=== PATIENT | female | born 1985 | race African-American/Black ===

== ENCOUNTER 2016-07-19 18:58 | Inpatient (IN) | payer OTHER ==
[~2016-07-19] VITALS: Ht 160 cm; Wt 127.5 kg
[2016-07-19 19:54] LABS: HEMATOCRIT. 41.2 % (36.0-48.0); HEMOGLOBIN. 13.4 g/dL (12.0-16.0); MEAN CORPUSCULAR HEMOGLOBIN 28.2 pg (28.0-32.0); MEAN CORPUSCULAR HGB CONC 32.6 g/dL (31.0-37.0); MEAN CORPUSCULAR VOLUME 86.4 fL (81.0-99.0); MEAN PLATELET VOLUME 8.7 fl (7.4-10.4); PLATELET 266 x1000/uL (130-400); RED BLOOD CELL COUNT 4.76 mill/uL (4.2-5.4); RED CELL DISTRIBUTION WIDTH 14.4 % (11.6-14.6); WHITE BLOOD COUNT 19.6 x1000/uL (4.5-11.0)
[2016-07-19 19:56] LABS: CHLORIDE 89 mEq/L (98-107); DIFFERENTIAL COMMENT 1; INDEX HEMOLYSI 1 (1-3); INDEX ICTERIC 1 (1-4); INDEX LIPEMIC 1 (1-3)
[2016-07-19 19:59] LABS: ALBUMIN 3.2 g/dL (3.4-5.0); ANION GAP 19; CALCIUM 9.9 mg/dL (8.5-10.1); CARBON DIOXIDE 22 mEq/L (21-32); UREA NITROGEN BLOOD 5 mg/dL (7-21)
[2016-07-19] MEDS ORDERED: ACETAMINOPHEN 325MG TABLET PO STA (19:59)
[2016-07-19] MEDS ORDERED: SODIUM CHLORIDE 0.9% 1,000 ML IV ONE (19:59)
[2016-07-19 20:02] LABS: HCG SCREEN NEGATIVE
[2016-07-19 20:04] LABS: ACETAMINOPHEN < 2 ug/mL (10-30); ALANINE AMINOTRANSFERASE 130 IU/L (13-61); ETHANOL BLOOD < 10 mg/dL; eGFR > 60 mL/min (>60)
[2016-07-19] MEDS ORDERED: KETOROLAC 30MG/ML VIAL IV STA (20:09)
[2016-07-19] MEDS ORDERED: PIPERACILLIN SODIUM/TAZOBACTAM 4.5 G in DEXT 5% WATER 100 ML IV ONE (20:15)
[2016-07-19] MEDS ORDERED: VANCOMYCIN 1 G PREMIX 200 ML IV ONE (20:15)
[2016-07-19] MEDS ORDERED: SODIUM CHLORIDE 0.9% 1000ML BAG (SEPSIS BOLUS) IV ONE (20:15)
[2016-07-19] MEDS ORDERED: POTASSIUM CHLORIDE INJ 30 MEQ in DEXT 5%/0.9% NACL 1,000 ML IV ONE (20:30)
[2016-07-19] MEDS ORDERED: INSULIN REGULAR (DRIP) 100 UNITS in SODIUM CHLORIDE 0.9% 100 ML IV ONE (20:30)
[2016-07-19 20:35] LABS: PLATELET ESTIMATE NORMAL
[2016-07-19 21:00] LABS: INR 1.1; PROTHROMBIN TIME 11.4 sec
[2016-07-19 21:07] LABS: LACTIC ACID 3.5 mmol/L (0.4-2.0)
[2016-07-19 21:18] LABS: CLARITY URINE CLEAR (CLEAR); COLOR URINE YELLOW (YELLOW); GLUCOSE URINE 3+ (NEGATIVE); KETONES URINE NEGATIVE (NEGATIVE); LEUKOCYTE ESTERASE URINE NEGATIVE (NEGATIVE); NITRITE URINE NEGATIVE (NEGATIVE); OCCULT BLOOD URINE 2+ (NEGATIVE); PH URINE 6.5 (4.5-8.0); PROTEIN URINE NEGATIVE (NEGATIVE); UROBILINOGEN URINE 0.2 E.U./dL (0.2-1.0)
[2016-07-19 21:30] LABS: *AMPHETAMINES SCREEN URINE NEGATIVE (NEGATIVE); *BARBITURATES SCREEN URINE NEGATIVE (NEGATIVE); *BENZODIAZEPINES SCREEN URINE NEGATIVE (NEGATIVE); *COCAINE SCREEN URINE NEGATIVE (NEGATIVE); CANNABINOID URINE SCREEN NEGATIVE (NEGATIVE); ECSTASY MDMA SCREEN URINE NEGATIVE (NEGATIVE); METHADONE URINE SCREEN NEGATIVE (NEGATIVE); OPIATES URINE SCREEN NEGATIVE (NEGATIVE); PHENCYCLIDINE URINE SCREEN NEGATIVE (NEGATIVE)
[2016-07-19 21:39] LABS: BACTERIA URINE TRACE; RBC URINE 0-2 /hpf (0-2); SQUAMOUS EPITHELIAL CELL URINE FEW /lpf (RARE/1+); WBC URINE 0-2 /hpf (0-2)
[2016-07-19] MEDS: INSULIN REGULAR (DRIP) 100 UNITS in SODIUM CHLORIDE 0.9% 100 ML IV NR (22:39)
[2016-07-19] MEDS ORDERED: SODIUM CHLORIDE 0.45% 1,000 ML IV SCH (23:37)
[2016-07-19] MEDS ORDERED: NA PHOS,M-B/NA PHOS,DI-BA ENEMA 118ML PR PRN (23:45)
[2016-07-19] MEDS ORDERED: DEXTROSE 50% WATER 50ML SYRINGE IV PRN (23:45)
[2016-07-19] MEDS ORDERED: MAGNESIUM/ALUMINUM HYDROXIDE/SIMETHICONE 30ML UDC PO PRN (23:45)
[2016-07-19] MEDS ORDERED: CLONIDINE 0.1MG TABLET PO PRN (23:45)
[2016-07-19] MEDS ORDERED: IPRATROPIUM/ALBUTEROL 0.5-3(2.5)MG/3ML NEB INH PRN (23:45)
[2016-07-19] MEDS ORDERED: ACETAMINOPHEN 650MG SUPP PR PRN (23:45)
[2016-07-19] MEDS ORDERED: DIPHENHYDRAMINE 50MG/ML VIAL IV PRN (23:45)
[2016-07-19] MEDS ORDERED: ONDANSETRON HCL 4MG/2ML VIAL IV PRN (23:45)
[2016-07-19] MEDS ORDERED: DOCUSATE SODIUM 100MG CAPSULE PO PRN (23:45)
[2016-07-19] MEDS ORDERED: GUAIFENESIN 200MG/10ML SUGAR FREE UDC PO PRN (23:45)
[2016-07-20] VITALS (91 sets, daily range): BP systolic 79–140; BP diastolic 43–90
[2016-07-20 00:06] LABS: DIFFERENTIAL COMMENT 1; HEMATOCRIT. 38.5 % (36.0-48.0); HEMOGLOBIN. 12.9 g/dL (12.0-16.0); MEAN CORPUSCULAR HEMOGLOBIN 28.2 pg (28.0-32.0); MEAN CORPUSCULAR HGB CONC 33.6 g/dL (31.0-37.0); MEAN CORPUSCULAR VOLUME 84.1 fL (81.0-99.0); MEAN PLATELET VOLUME 8.5 fl (7.4-10.4); PLATELET 246 x1000/uL (130-400); RED BLOOD CELL COUNT 4.57 mill/uL (4.2-5.4); RED CELL DISTRIBUTION WIDTH 14.3 % (11.6-14.6); WHITE BLOOD COUNT 15.3 x1000/uL (4.5-11.0)
[2016-07-20 00:15] LABS: CHLORIDE 99 mEq/L (98-107); INDEX HEMOLYSI 1 (1-3); INDEX ICTERIC 1 (1-4); INDEX LIPEMIC 1 (1-3)
[2016-07-20 00:20] LABS: BG BASE EXCESS -6.6 mmol/L (-2.0-2.0); BG CARBOXYHEMOGLOBIN 0.7 % (0.5-1.5); BG DEOXYHEMOGLOBIN 2.6 % (0.0-5.0); BG FRACTION INSPIRED OXYGEN 21; BG HCO3 ACT 15.7 mmol/L (22.0-26.0); BG METHEMOGLOBIN 0.3 % (0.0-1.5); BG OXYGEN SATURATION 97.4 % (92.0-98.5); BG OXYHEMOGLOBIN 96.4 % (94.0-97.0); BG PCO2 23.6 mmHg (35.0-45.0); BG PO2 98.5 mmHg (75.0-100.0); BG SAMPLE SITE RIGHT RADIAL; BG TOTAL HEMOGLOBIN 12.8 g/dL (12.0-18.0); BG VENT MODE ROOM AIR
[2016-07-20 00:22] LABS: ANION GAP 17; CALCIUM 9.5 mg/dL (8.5-10.1); CARBON DIOXIDE 22 mEq/L (21-32); UREA NITROGEN BLOOD 5 mg/dL (7-21); eGFR > 60 mL/min (>60)
[2016-07-20 00:29] LABS: ALBUMIN 2.6 g/dL (3.4-5.0); BILIRUBIN DIRECT 0.3 mg/dL (0.0-0.2)
[2016-07-20 00:31] LABS: AMMONIA 44 uMol/L (<32)
[2016-07-20 02:18] LABS: PLATELET ESTIMATE NORMAL
[2016-07-20] MEDS ORDERED: LEVOFLOXACIN 500MG PREMIX 100 ML IV SCH ×2 (03:00→09:00)
[2016-07-20] MEDS ORDERED: POTASSIUM CHLORIDE INJ 30 MEQ in DEXT 5%/0.9% NACL 1,000 ML IV NR (03:00)
[2016-07-20] MEDS ORDERED: POTASSIUM CHLORIDE INJ 30 MEQ in DEXT 5%/0.9% NACL 1,000 ML IV SCH (03:00)
[2016-07-20] MEDS: INSULIN REGULAR (DRIP) 100 UNITS in SODIUM CHLORIDE 0.9% 100 ML IV NR (03:35)
[2016-07-20] MEDS ORDERED: POTASSIUM CHLORIDE INJ 40 MEQ in DEXT 5% WATER 250 ML IV NR (04:00)
[2016-07-20] MEDS ORDERED: NACL IV SCH (04:00)
[2016-07-20] MEDS ORDERED: POTASSIUM CHLORIDE IV SCH (04:00)
[2016-07-20] MEDS ORDERED: SODIUM BICARBONATE IV SCH (04:00)
[2016-07-20] MEDS ORDERED: DEXT IV SCH (04:00)
[2016-07-20 04:16] LABS: HEMATOCRIT. 34.7 % (36.0-48.0); HEMOGLOBIN. 11.8 g/dL (12.0-16.0); MEAN CORPUSCULAR HEMOGLOBIN 28.4 pg (28.0-32.0); MEAN CORPUSCULAR HGB CONC 34.1 g/dL (31.0-37.0); MEAN CORPUSCULAR VOLUME 83.3 fL (81.0-99.0); MEAN PLATELET VOLUME 8.4 fl (7.4-10.4); PLATELET 243 x1000/uL (130-400); RED BLOOD CELL COUNT 4.17 mill/uL (4.2-5.4); RED CELL DISTRIBUTION WIDTH 14.3 % (11.6-14.6); WHITE BLOOD COUNT 20.3 x1000/uL (4.5-11.0)
[2016-07-20] MEDS: NOREPINEPHRINE 4 MG in DEXT 5% WATER 246 ML IV PRN ×2 (04:17→08:55)
[2016-07-20 04:25] LABS: DIFFERENTIAL COMMENT 1
[2016-07-20 04:31] LABS: ALANINE AMINOTRANSFERASE 86 IU/L (13-61); ALBUMIN 2.2 g/dL (3.4-5.0); ANION GAP 13; CALCIUM 8.6 mg/dL (8.5-10.1); CARBON DIOXIDE 25 mEq/L (21-32); CHLORIDE 107 mEq/L (98-107); HDL CHOLESTEROL 37 mg/dL (40-59); INDEX HEMOLYSI 1 (1-3); INDEX ICTERIC 1 (1-4); INDEX LIPEMIC 1 (1-3); LDL CHOLESTEROL 36 mg/dL (5-100); TRIGLYCERIDE 101 mg/dL (0-150); TROPONIN I < 0.02 ng/mL (0.00-0.04); UREA NITROGEN BLOOD 5 mg/dL (7-21); eGFR > 60 mL/min (>60)
[2016-07-20] MEDS: VANCOMYCIN 750 MG PREMIX 150 ML IV SCH ×3 (04:38→20:08)
[2016-07-20 04:41] LABS: CREATINE KINASE 982 IU/L (26-192)
[2016-07-20] MEDS: METRONIDAZOLE 500 MG PREMIX 100 ML IV SCH ×2 (05:46→14:39)
[2016-07-20] MEDS: SODIUM CHLORIDE 0.9% INJ 3ML FLUSH IVF SCH ×3 (05:47→21:29)
[2016-07-20] MEDS: ACETAMINOPHEN 650MG/20.3ML UDC GT PRN ×4 (05:47→19:49)
[2016-07-20] MEDS: BLOOD SUGAR DIAGNOSTIC STRIP TEST SCH ×9 (05:47→20:47)
[2016-07-20] MEDS ORDERED: INSULIN REGULAR (DRIP) 100 UNITS in SODIUM CHLORIDE 0.9% 99 ML IV PRN (06:30)
[2016-07-20] MEDS ORDERED: INSULIN LISPRO 100 UNITS/ML SUBCUT SCH ×3 (07:00→16:30)
[2016-07-20 07:13] LABS: PLATELET ESTIMATE NORMAL
[2016-07-20] MEDS ORDERED: INSULIN REGULAR (DRIP) 100 UNITS in SODIUM CHLORIDE 0.9% 100 ML IV SCH (07:24)
[2016-07-20] MEDS ORDERED: DEXTROSE 50% WATER 50ML SYRINGE IV PRN ×3 (07:30→09:15)
[2016-07-20 07:56] LABS: BG CARBOXYHEMOGLOBIN 0.6 % (0.5-1.5); BG DEOXYHEMOGLOBIN 1.8 % (0.0-5.0); BG FRACTION INSPIRED OXYGEN 21; BG HCO3 ACT 21.6 mmol/L (22.0-26.0); BG METHEMOGLOBIN 0.2 % (0.0-1.5); BG OXYGEN SATURATION 98.2 % (92.0-98.5); BG OXYHEMOGLOBIN 97.4 % (94.0-97.0); BG PH 7.476 (7.350-7.450); BG PO2 108.3 mmHg (75.0-100.0); BG SAMPLE SITE LEFT RADIAL; BG TOTAL HEMOGLOBIN 12.5 g/dL (12.0-18.0); BG VENT MODE ROOM AIR
[2016-07-20] MEDS: IPRATROPIUM/ALBUTEROL 0.5-3(2.5)MG/3ML NEB INH SCH ×3 (08:32→21:37)
[2016-07-20 08:58] LABS: ANION GAP 14; CALCIUM 8.8 mg/dL (8.5-10.1); CARBON DIOXIDE 23 mEq/L (21-32); CHLORIDE 107 mEq/L (98-107); INDEX HEMOLYSI 1 (1-3); INDEX ICTERIC 1 (1-4); INDEX LIPEMIC 1 (1-3); UREA NITROGEN BLOOD 8 mg/dL (7-21); eGFR > 60 mL/min (>60)
[2016-07-20] MEDS ORDERED: POTASSIUM CHLORIDE 20MEQ TABLET SR PO SCH (09:15)
[2016-07-20] MEDS ORDERED: INSULIN DETEMIR UD 100 UNITS/ML SYR SUBCUT SCH ×2 (10:00→22:00)
[2016-07-20 11:51] LABS: MAGNESIUM 1.9 mg/dL (1.8-2.4); PHOSPHORUS 2.3 mg/dL (2.5-4.9)
[2016-07-20 12:21] LABS: T4 FREE 1.75 ng/dL (0.76-1.46); THYROID STIMULATING HORMONE 1.2 uIU/mL (0.36-3.74)
[2016-07-20] MEDS: NOREPINEPHRINE 8 MG in DEXT 5% WATER 242 ML IV PRN (12:28)
[2016-07-20] MEDS ORDERED: POTASSIUM PHOS,M-BASIC-D-BASIC 20 MMOL in DEXT 5% WATER 243.3333 ML IV NR (15:00)
[2016-07-20] MEDS: ARIPIPRAZOLE 15MG TABLET PO SCH (16:43)
[2016-07-20] MEDS: INSULIN LISPRO (LOW DOSE) 100 UNITS/ML SUBCUT SCH ×2 (17:13→20:26)
[2016-07-20] MEDS: INSULIN LISPRO 100 UNITS/ML SUBCUT SCH (17:13)
[2016-07-20] MEDS: POTASSIUM CHLORIDE INJ 10 MEQ in SODIUM CHLORIDE 0.9% 1,000 ML IV SCH (17:58)
[2016-07-20] MEDS: DIVALPROEX SODIUM 250MG DR TABLET PO SCH (20:08)
[2016-07-20 21:52] LABS: CHLORIDE 103 mEq/L (98-107)
[2016-07-20 21:54] LABS: INDEX HEMOLYSI 1 (1-3); INDEX ICTERIC 1 (1-4); INDEX LIPEMIC 1 (1-3)
[2016-07-20 22:03] LABS: ANION GAP 15; CALCIUM 8.7 mg/dL (8.5-10.1); CARBON DIOXIDE 24 mEq/L (21-32); CREATINE KINASE 288 IU/L (26-192); TROPONIN I < 0.02 ng/mL (0.00-0.04); UREA NITROGEN BLOOD 9 mg/dL (7-21); eGFR > 60 mL/min (>60)
[2016-07-20] MEDS ORDERED: METRONIDAZOLE 500 MG PREMIX 100 ML IV SCH (23:00)
[2016-07-21] VITALS (91 sets, daily range): BP systolic 74–159; BP diastolic 22–108
[2016-07-21] MEDS: NOREPINEPHRINE 8 MG in DEXT 5% WATER 242 ML IV PRN (01:24)
[2016-07-21] MEDS: ACETAMINOPHEN 650MG/20.3ML UDC GT PRN ×2 (02:09→08:20)
[2016-07-21] MEDS: IPRATROPIUM/ALBUTEROL 0.5-3(2.5)MG/3ML NEB INH SCH ×4 (02:19→19:35)
[2016-07-21] MEDS: LEVOFLOXACIN 500MG PREMIX 100 ML IV SCH (03:43)
[2016-07-21] MEDS: VANCOMYCIN 750 MG PREMIX 150 ML IV SCH (04:52)
[2016-07-21 05:11] LABS: BASOPHILS % 0.2 % (0.0-2.0); EOSINOPHILS % 2.4 % (0.0-5.0); HEMATOCRIT. 31.2 % (36.0-48.0); HEMOGLOBIN. 10.4 g/dL (12.0-16.0); LYMPHOCYTES % 9.2 % (20.0-50.0); MEAN CORPUSCULAR HEMOGLOBIN 28.3 pg (28.0-32.0); MEAN CORPUSCULAR HGB CONC 33.4 g/dL (31.0-37.0); MEAN CORPUSCULAR VOLUME 84.7 fL (81.0-99.0); MEAN PLATELET VOLUME 8.9 fl (7.4-10.4); MONOCYTES % 3.1 % (2.0-8.0); NEUTROPHILS % 85.1 % (40.0-76.0); PLATELET 211 x1000/uL (130-400); RED BLOOD CELL COUNT 3.68 mill/uL (4.2-5.4); RED CELL DISTRIBUTION WIDTH 14.7 % (11.6-14.6); WHITE BLOOD COUNT 19.3 x1000/uL (4.5-11.0)
[2016-07-21 05:33] LABS: ALANINE AMINOTRANSFERASE 77 IU/L (13-61); ALBUMIN 1.9 g/dL (3.4-5.0); ANION GAP 11; CALCIUM 8.3 mg/dL (8.5-10.1); CARBON DIOXIDE 25 mEq/L (21-32); CHLORIDE 105 mEq/L (98-107); CREATINE KINASE 161 IU/L (26-192); INDEX HEMOLYSI 1 (1-3); INDEX ICTERIC 1 (1-4); INDEX LIPEMIC 1 (1-3); MAGNESIUM 1.7 mg/dL (1.8-2.4); UREA NITROGEN BLOOD 6 mg/dL (7-21); VANCOMYCIN TROUGH 4.5 ug/mL (5.0-10.0); eGFR > 60 mL/min (>60)
[2016-07-21] MEDS: SODIUM CHLORIDE 0.9% INJ 3ML FLUSH IVF SCH ×3 (05:43→21:52)
[2016-07-21] MEDS: BLOOD SUGAR DIAGNOSTIC STRIP TEST SCH ×4 (05:49→21:57)
[2016-07-21] MEDS: METRONIDAZOLE 500 MG PREMIX 100 ML IV SCH ×3 (06:15→22:50)
[2016-07-21] MEDS: INSULIN LISPRO (LOW DOSE) 100 UNITS/ML SUBCUT SCH (06:34)
[2016-07-21] MEDS: INSULIN LISPRO 100 UNITS/ML SUBCUT SCH ×7 (06:34→22:00)
[2016-07-21 07:57] LABS: HEPATITIS B SURFACE ANTIGEN NEGATIVE
[2016-07-21] MEDS: ARIPIPRAZOLE 15MG TABLET PO SCH (08:19)
[2016-07-21] MEDS: DIVALPROEX SODIUM 250MG DR TABLET PO SCH ×2 (08:19→21:52)
[2016-07-21 08:24] LABS: HEPATITIS C VIR.AB < 0.02 INDEXVAL (0.00-0.80)
[2016-07-21 08:25] LABS: HEPATITIS B CORE AB IGM NEGATIVE
[2016-07-21 08:26] LABS: HEPATITIS A AB IGM NEGATIVE (NEGATIVE)
[2016-07-21] MEDS ORDERED: POTASSIUM PHOS,M-BASIC-D-BASIC 30 MMOL in SODIUM CHLORIDE 0.9% 500 ML IV SCH (09:00)
[2016-07-21] MEDS: HYDROCODONE/ACETAMINOPHEN 10/325MG TABLET PO PRN ×3 (10:42→23:48)
[2016-07-21] MEDS ORDERED: DEXTROSE 50% WATER 50ML SYRINGE IV PRN (11:30)
[2016-07-21] MEDS: VANCOMYCIN 1500MG in DEXTROSE 5% WATER 250ML IV SCH ×3 (11:45→18:41)
[2016-07-21] MEDS: MAGNESIUM 2 G PREMIX 50 ML IV SCH ×2 (13:16→13:23)
[2016-07-21] MEDS: ZINC OXIDE 20% OINT 30GM TOP SCH ×2 (14:00→22:00)
[2016-07-21] MEDS ORDERED: ARIP30TA3 PO (16:18)
[2016-07-21] MEDS ORDERED: DIVA500T51 PO (16:21)
[2016-07-21] MEDS ORDERED: GLIP5TAB12 PO (16:33)
[2016-07-21] MEDS ORDERED: METF850T2 PO (16:41)
[2016-07-21] MEDS ORDERED: LITHTAB PO ×2 (16:46→16:50)
[2016-07-21] MEDS ORDERED: ZINC OXIDE 20% OINT 30GM TOP SCH (17:00)
[2016-07-21] MEDS: LINAGLIPTIN 5MG TABLET PO SCH (18:41)
[2016-07-21 19:00] LABS: BASOPHILS % 0.4 % (0.0-2.0); DIFFERENTIAL COMMENT 0; EOSINOPHILS % 2.8 % (0.0-5.0); HEMATOCRIT. 30.7 % (36.0-48.0); LYMPHOCYTES % 13.6 % (20.0-50.0); MEAN CORPUSCULAR HEMOGLOBIN 27.8 pg (28.0-32.0); MEAN CORPUSCULAR HGB CONC 32.7 g/dL (31.0-37.0); MEAN CORPUSCULAR VOLUME 85.1 fL (81.0-99.0); MEAN PLATELET VOLUME 8.9 fl (7.4-10.4); MONOCYTES % 3.1 % (2.0-8.0); NEUTROPHILS % 80.1 % (40.0-76.0); PLATELET 211 x1000/uL (130-400); RED CELL DISTRIBUTION WIDTH 14.5 % (11.6-14.6); WHITE BLOOD COUNT 15.1 x1000/uL (4.5-11.0)
[2016-07-21] MEDS: MICONAZOLE NITRATE 2% OINT 71GM TOP SCH (22:01)
[2016-07-21] MEDS: MUPIROCIN 2% OINT 22GM TOP SCH (22:01)
[2016-07-21] MEDS: INSULIN DETEMIR UD 100 UNITS/ML SYR SUBCUT SCH (22:02)
[2016-07-21] MEDS: NICOTINE 21MG PATCH TD SCH (22:51)
[2016-07-22] VITALS (28 sets, daily range): BP systolic 98–135; BP diastolic 48–89
[2016-07-22] MEDS: VANCOMYCIN 1500MG in DEXTROSE 5% WATER 250ML IV SCH ×2 (01:00→06:51)
[2016-07-22] MEDS: IPRATROPIUM/ALBUTEROL 0.5-3(2.5)MG/3ML NEB INH SCH ×4 (01:05→21:13)
[2016-07-22] MEDS: LEVOFLOXACIN 500MG PREMIX 100 ML IV SCH (04:57)
[2016-07-22 05:15] LABS: BASOPHILS % 0.4 % (0.0-2.0); EOSINOPHILS % 2.7 % (0.0-5.0); HEMATOCRIT. 29.9 % (36.0-48.0); HEMOGLOBIN. 9.9 g/dL (12.0-16.0); LYMPHOCYTES % 15.5 % (20.0-50.0); MEAN CORPUSCULAR HEMOGLOBIN 28.4 pg (28.0-32.0); MEAN CORPUSCULAR HGB CONC 33.2 g/dL (31.0-37.0); MEAN CORPUSCULAR VOLUME 85.4 fL (81.0-99.0); MEAN PLATELET VOLUME 9.1 fl (7.4-10.4); MONOCYTES % 4.3 % (2.0-8.0); NEUTROPHILS % 77.1 % (40.0-76.0); PLATELET 193 x1000/uL (130-400); RED BLOOD CELL COUNT 3.51 mill/uL (4.2-5.4); RED CELL DISTRIBUTION WIDTH 14.7 % (11.6-14.6); WHITE BLOOD COUNT 12.2 x1000/uL (4.5-11.0)
[2016-07-22 05:40] LABS: ALANINE AMINOTRANSFERASE 72 IU/L (13-61); ALBUMIN 1.7 g/dL (3.4-5.0); ANION GAP 14; CALCIUM 8.3 mg/dL (8.5-10.1); CARBON DIOXIDE 23 mEq/L (21-32); CHLORIDE 107 mEq/L (98-107); INDEX HEMOLYSI 1 (1-3); INDEX ICTERIC 1 (1-4); INDEX LIPEMIC 1 (1-3); MAGNESIUM 1.7 mg/dL (1.8-2.4); PHOSPHORUS 3.6 mg/dL (2.5-4.9); UREA NITROGEN BLOOD 7 mg/dL (7-21); eGFR > 60 mL/min (>60)
[2016-07-22 05:58] LABS: VANCOMYCIN TROUGH 31.4 ug/mL (5.0-10.0)
[2016-07-22] MEDS: SODIUM CHLORIDE 0.9% INJ 3ML FLUSH IVF SCH ×3 (06:19→22:22)
[2016-07-22] MEDS: METRONIDAZOLE 500 MG PREMIX 100 ML IV SCH (06:22)
[2016-07-22] MEDS: HYDROCODONE/ACETAMINOPHEN 10/325MG TABLET PO PRN (06:24)
[2016-07-22] MEDS: BLOOD SUGAR DIAGNOSTIC STRIP TEST SCH ×4 (06:51→21:00)
[2016-07-22] MEDS: INSULIN LISPRO 100 UNITS/ML SUBCUT SCH ×7 (08:15→22:17)
[2016-07-22] MEDS: ARIPIPRAZOLE 15MG TABLET PO SCH (09:09)
[2016-07-22] MEDS: LINAGLIPTIN 5MG TABLET PO SCH (09:10)
[2016-07-22] MEDS: DIVALPROEX SODIUM 250MG DR TABLET PO SCH ×2 (09:10→22:17)
[2016-07-22] MEDS: MICONAZOLE NITRATE 2% OINT 71GM TOP SCH ×2 (09:11→22:18)
[2016-07-22] MEDS: NICOTINE 21MG PATCH TD SCH (09:11)
[2016-07-22] MEDS: ZINC OXIDE 20% OINT 30GM TOP SCH ×2 (09:11→22:26)
[2016-07-22] MEDS: MUPIROCIN 2% OINT 22GM TOP SCH (09:11)
[2016-07-22 11:18] LABS: MAGNESIUM 1.8 mg/dL (1.8-2.4)
[2016-07-22] MEDS: LITHIUM CARBONATE 150 MG CAPSULE PO SCH ×2 (11:18→22:17)
[2016-07-22] MEDS ORDERED: MAGNESIUM 2 G PREMIX 50 ML IV NR (11:30)
[2016-07-22] MEDS: CEFTRIAXONE 2 G in DEXTROSE 5% WATER 50 ML IV SCH (12:44)
[2016-07-22] MEDS: POTASSIUM CHLORIDE INJ 10 MEQ in SODIUM CHLORIDE 0.9% 1,000 ML IV SCH (14:36)
[2016-07-22] MEDS ORDERED: LITHIUM CARBONATE 150 MG CAPSULE PO SCH (17:00)
[2016-07-22] MEDS: INSULIN DETEMIR UD 100 UNITS/ML SYR SUBCUT SCH (22:16)
[2016-07-23] VITALS: BP 113/64
[2016-07-23] MEDS: POTASSIUM CHLORIDE INJ 10 MEQ in SODIUM CHLORIDE 0.9% 1,000 ML IV SCH (01:37)
[2016-07-23] MEDS: IPRATROPIUM/ALBUTEROL 0.5-3(2.5)MG/3ML NEB INH SCH ×3 (02:30→20:36)
[2016-07-23 04:00] VITALS: BP 123/76
[2016-07-23] MEDS: SODIUM CHLORIDE 0.9% INJ 3ML FLUSH IVF SCH ×3 (06:10→21:37)
[2016-07-23] MEDS: BLOOD SUGAR DIAGNOSTIC STRIP TEST SCH ×4 (06:12→21:32)
[2016-07-23] MEDS: HYDROCODONE/ACETAMINOPHEN 10/325MG TABLET PO PRN ×2 (06:30→15:12)
[2016-07-23 07:42] LABS: ANION GAP 11; CALCIUM 8.9 mg/dL (8.5-10.1); CARBON DIOXIDE 28 mEq/L (21-32); CHLORIDE 107 mEq/L (98-107); INDEX HEMOLYSI 1 (1-3); INDEX ICTERIC 1 (1-4); INDEX LIPEMIC 1 (1-3); MAGNESIUM 1.9 mg/dL (1.8-2.4); UREA NITROGEN BLOOD 6 mg/dL (7-21); eGFR > 60 mL/min (>60)
[2016-07-23] MEDS: INSULIN LISPRO 100 UNITS/ML SUBCUT SCH ×5 (07:47→17:47)
[2016-07-23 08:00] VITALS: BP 127/83
[2016-07-23 08:04] LABS: BASOPHILS % 0.4 % (0.0-2.0); EOSINOPHILS % 2.7 % (0.0-5.0); HEMATOCRIT. 32.6 % (36.0-48.0); HEMOGLOBIN. 10.6 g/dL (12.0-16.0); LYMPHOCYTES % 22.1 % (20.0-50.0); MEAN CORPUSCULAR HEMOGLOBIN 27.7 pg (28.0-32.0); MEAN CORPUSCULAR HGB CONC 32.7 g/dL (31.0-37.0); MEAN CORPUSCULAR VOLUME 84.8 fL (81.0-99.0); MEAN PLATELET VOLUME 8.7 fl (7.4-10.4); MONOCYTES % 8.6 % (2.0-8.0); NEUTROPHILS % 66.2 % (40.0-76.0); PLATELET 238 x1000/uL (130-400); RED BLOOD CELL COUNT 3.84 mill/uL (4.2-5.4); RED CELL DISTRIBUTION WIDTH 14.8 % (11.6-14.6); WHITE BLOOD COUNT 8.6 x1000/uL (4.5-11.0)
[2016-07-23] MEDS: ARIPIPRAZOLE 15MG TABLET PO SCH (10:08)
[2016-07-23] MEDS: CEFTRIAXONE 2 G in DEXTROSE 5% WATER 50 ML IV SCH (10:08)
[2016-07-23] MEDS: LINAGLIPTIN 5MG TABLET PO SCH (10:09)
[2016-07-23] MEDS: LITHIUM CARBONATE 150 MG CAPSULE PO SCH ×2 (10:09→16:51)
[2016-07-23] MEDS: DIVALPROEX SODIUM 250MG DR TABLET PO SCH ×2 (10:09→21:38)
[2016-07-23] MEDS: ZINC OXIDE 20% OINT 30GM TOP SCH ×2 (10:10→21:37)
[2016-07-23] MEDS: MUPIROCIN 2% OINT 22GM TOP SCH (10:10)
[2016-07-23] MEDS: MICONAZOLE NITRATE 2% OINT 71GM TOP SCH ×2 (10:10→21:37)
[2016-07-23 12:00] VITALS: BP 96/80
[2016-07-23] MEDS: NICOTINE 21MG PATCH TD SCH (14:06)
[2016-07-23 16:00] VITALS: BP 144/95
[2016-07-23] MEDS: CHOLECALCIFEROL (D3) 1000 UNIT TABLET PO SCH (16:51)
[2016-07-23] MEDS ORDERED: INSULIN LISPRO 100 UNITS/ML SUBCUT SCH (17:20)
[2016-07-23 17:21] LABS: LITHIUM SERUM < 0.10 mmol/L (0.60-1.20)
[2016-07-23 17:22] LABS: INDEX HEMOLYSI 2 (1-3)
[2016-07-23 17:37] LABS: VITAMIN B12 SERUM 1426 pg/mL (211-911)
[2016-07-23] MEDS: INSULIN LISPRO (LOW DOSE) 100 UNITS/ML SUBCUT SCH (17:47)
[2016-07-23 20:00] VITALS: BP 124/81
[2016-07-23] MEDS: INSULIN DETEMIR UD 100 UNITS/ML SYR SUBCUT SCH (21:39)
[2016-07-23] MEDS ORDERED: INSLIS SUBCUT (23:36)
[2016-07-23] MEDS ORDERED: LEVVL SUBCUT (23:36)
[2016-07-23] MEDS ORDERED: LINA5TAB PO (23:36)
[2016-07-23] MEDS ORDERED: ARIP15TA3 PO (23:36)
[2016-07-23] MEDS ORDERED: LITH150C7 PO (23:36)
[2016-07-23] MEDS ORDERED: Divalproex Sodium PO (23:36)
[2016-07-23] MEDS ORDERED: [UNRECOGNIZED DRUG - OTHER] PO (23:36)
[2016-07-24] VITALS: BP 131/99
[2016-07-24] MEDS: IPRATROPIUM/ALBUTEROL 0.5-3(2.5)MG/3ML NEB INH SCH ×3 (02:13→14:53)
[2016-07-24] MEDS: HYDROCODONE/ACETAMINOPHEN 10/325MG TABLET PO PRN (02:39)
[2016-07-24 04:00] VITALS: BP 125/82
[2016-07-24] MEDS: SODIUM CHLORIDE 0.9% INJ 3ML FLUSH IVF SCH ×3 (06:15→22:54)
[2016-07-24] MEDS: BLOOD SUGAR DIAGNOSTIC STRIP TEST SCH ×4 (06:38→21:00)
[2016-07-24 08:00] VITALS: BP 156/96
[2016-07-24] MEDS: INSULIN LISPRO (LOW DOSE) 100 UNITS/ML SUBCUT SCH ×3 (09:09→17:28)
[2016-07-24] MEDS: LINAGLIPTIN 5MG TABLET PO SCH (09:10)
[2016-07-24] MEDS: INSULIN LISPRO 100 UNITS/ML SUBCUT SCH ×3 (09:10→17:29)
[2016-07-24] MEDS: CHOLECALCIFEROL (D3) 1000 UNIT TABLET PO SCH (09:11)
[2016-07-24] MEDS: CEFTRIAXONE 2 G in DEXTROSE 5% WATER 50 ML IV SCH (09:11)
[2016-07-24] MEDS: ARIPIPRAZOLE 15MG TABLET PO SCH (09:11)
[2016-07-24] MEDS: LITHIUM CARBONATE 150 MG CAPSULE PO SCH ×2 (09:14→17:30)
[2016-07-24] MEDS: DIVALPROEX SODIUM 250MG DR TABLET PO SCH ×2 (09:14→22:52)
[2016-07-24] MEDS: MUPIROCIN 2% OINT 22GM TOP SCH (09:15)
[2016-07-24] MEDS: NICOTINE 21MG PATCH TD SCH (09:15)
[2016-07-24] MEDS: MICONAZOLE NITRATE 2% OINT 71GM TOP SCH ×2 (09:15→22:54)
[2016-07-24] MEDS: ZINC OXIDE 20% OINT 30GM TOP SCH ×2 (09:16→22:54)
[2016-07-24] MEDS ORDERED: INSULIN DETEMIR UD 100 UNITS/ML SYR SUBCUT SCH (10:00)
[2016-07-24] MEDS: ACETAMINOPHEN 650MG/20.3ML UDC GT PRN ×2 (10:56→17:27)
[2016-07-24 12:00] VITALS: BP 120/74
[2016-07-24 16:00] VITALS: BP 110/78
[2016-07-24 20:00] VITALS: BP 117/65
[2016-07-24] MEDS: POTASSIUM CHLORIDE INJ 10 MEQ in SODIUM CHLORIDE 0.9% 1,000 ML IV SCH (22:53)
[2016-07-24] MEDS: INSULIN DETEMIR UD 100 UNITS/ML SYR SUBCUT SCH (22:55)
[2016-07-25] MEDS: HYDROCODONE/ACETAMINOPHEN 10/325MG TABLET PO PRN ×2 (00:04→06:27)
[2016-07-25 04:00] VITALS: BP 112/72
[2016-07-25] MEDS: SODIUM CHLORIDE 0.9% INJ 3ML FLUSH IVF SCH ×3 (06:20→21:20)
[2016-07-25] MEDS: ACETAMINOPHEN 650MG/20.3ML UDC GT PRN ×2 (06:30→17:54)
[2016-07-25 07:14] LABS: HEMATOCRIT. 36.5 % (36.0-48.0); MEAN CORPUSCULAR HEMOGLOBIN 27.9 pg (28.0-32.0); MEAN CORPUSCULAR HGB CONC 32.9 g/dL (31.0-37.0); MEAN CORPUSCULAR VOLUME 84.8 fL (81.0-99.0); PLATELET 288 x1000/uL (130-400); RED BLOOD CELL COUNT 4.31 mill/uL (4.2-5.4); RED CELL DISTRIBUTION WIDTH 14.3 % (11.6-14.6); WHITE BLOOD COUNT 11.9 x1000/uL (4.5-11.0)
[2016-07-25] MEDS: BLOOD SUGAR DIAGNOSTIC STRIP TEST SCH ×4 (07:20→21:23)
[2016-07-25 07:25] LABS: ANION GAP 13; CARBON DIOXIDE 26 mEq/L (21-32); CHLORIDE 101 mEq/L (98-107); INDEX HEMOLYSI 1 (1-3); INDEX ICTERIC 1 (1-4); INDEX LIPEMIC 1 (1-3); MAGNESIUM 1.9 mg/dL (1.8-2.4); PHOSPHORUS 4.4 mg/dL (2.5-4.9); UREA NITROGEN BLOOD 12 mg/dL (7-21); eGFR > 60 mL/min (>60)
[2016-07-25 07:29] LABS: DIFFERENTIAL COMMENT 1
[2016-07-25] MEDS: IPRATROPIUM/ALBUTEROL 0.5-3(2.5)MG/3ML NEB INH SCH ×3 (07:39→20:31)
[2016-07-25 08:00] VITALS: BP 119/68
[2016-07-25 08:20] VITALS: BP 120/68
[2016-07-25] MEDS: INSULIN LISPRO (LOW DOSE) 100 UNITS/ML SUBCUT SCH ×4 (08:32→21:20)
[2016-07-25] MEDS: INSULIN LISPRO 100 UNITS/ML SUBCUT SCH ×3 (08:36→17:51)
[2016-07-25] MEDS: NICOTINE 21MG PATCH TD SCH (08:37)
[2016-07-25] MEDS: LINAGLIPTIN 5MG TABLET PO SCH (08:37)
[2016-07-25] MEDS: CEFTRIAXONE 2 G in DEXTROSE 5% WATER 50 ML IV SCH (08:37)
[2016-07-25] MEDS: DIVALPROEX SODIUM 250MG DR TABLET PO SCH ×2 (08:47→21:16)
[2016-07-25] MEDS: MICONAZOLE NITRATE 2% OINT 71GM TOP SCH ×2 (08:47→21:21)
[2016-07-25] MEDS: MUPIROCIN 2% OINT 22GM TOP SCH (08:47)
[2016-07-25] MEDS: CHOLECALCIFEROL (D3) 1000 UNIT TABLET PO SCH (08:47)
[2016-07-25] MEDS: ZINC OXIDE 20% OINT 30GM TOP SCH ×2 (08:48→21:21)
[2016-07-25] MEDS: LITHIUM CARBONATE 150 MG CAPSULE PO SCH ×2 (08:54→17:39)
[2016-07-25] MEDS: ARIPIPRAZOLE 15MG TABLET PO SCH (08:54)
[2016-07-25 08:58] LABS: PLATELET ESTIMATE NORMAL
[2016-07-25] MEDS ORDERED: INSULIN DETEMIR UD 100 UNITS/ML SYR SUBCUT SCH (10:00)
[2016-07-25 12:00] VITALS: BP 105/71
[2016-07-25 16:00] VITALS: BP 112/78
[2016-07-25 20:00] VITALS: BP 106/57
[2016-07-25] MEDS ORDERED: INSULIN LISPRO 100 UNITS/ML SUBCUT SCH (21:00)
[2016-07-25] MEDS: INSULIN DETEMIR UD 100 UNITS/ML SYR SUBCUT SCH (21:19)
[2016-07-25] MEDS ORDERED: POTASSIUM CHLORIDE INJ 30 MEQ in DEXT 5%/0.9% NACL 1,000 ML IV SCH (23:41)
[2016-07-26] VITALS: BP 109/62
[2016-07-26] MEDS: IPRATROPIUM/ALBUTEROL 0.5-3(2.5)MG/3ML NEB INH SCH ×3 (00:28→22:26)
[2016-07-26] MEDS: HYDROCODONE/ACETAMINOPHEN 10/325MG TABLET PO PRN ×2 (01:11→10:32)
[2016-07-26 04:00] VITALS: BP 114/76
[2016-07-26 06:12] LABS: HEMOGLOBIN. 12.1 g/dL (12.0-16.0); MEAN CORPUSCULAR HEMOGLOBIN 27.4 pg (28.0-32.0); MEAN CORPUSCULAR HGB CONC 32.7 g/dL (31.0-37.0); MEAN CORPUSCULAR VOLUME 83.9 fL (81.0-99.0); PLATELET 322 x1000/uL (130-400); RED BLOOD CELL COUNT 4.41 mill/uL (4.2-5.4); RED CELL DISTRIBUTION WIDTH 14.3 % (11.6-14.6); WHITE BLOOD COUNT 11.5 x1000/uL (4.5-11.0)
[2016-07-26] MEDS: SODIUM CHLORIDE 0.9% INJ 3ML FLUSH IVF SCH ×3 (06:24→21:42)
[2016-07-26] MEDS: BLOOD SUGAR DIAGNOSTIC STRIP TEST SCH ×4 (06:25→21:46)
[2016-07-26 06:43] LABS: ANION GAP 13; CALCIUM 9.3 mg/dL (8.5-10.1); CARBON DIOXIDE 27 mEq/L (21-32); CHLORIDE 101 mEq/L (98-107); INDEX HEMOLYSI 1 (1-3); INDEX ICTERIC 1 (1-4); INDEX LIPEMIC 1 (1-3); UREA NITROGEN BLOOD 12 mg/dL (7-21); eGFR > 60 mL/min (>60)
[2016-07-26 06:51] LABS: DIFFERENTIAL COMMENT 1
[2016-07-26 08:11] VITALS: BP 124/74
[2016-07-26] MEDS: CEFTRIAXONE 2 G in DEXTROSE 5% WATER 50 ML IV SCH (10:04)
[2016-07-26] MEDS: INSULIN LISPRO 100 UNITS/ML SUBCUT SCH ×3 (10:14→18:13)
[2016-07-26] MEDS: INSULIN LISPRO (LOW DOSE) 100 UNITS/ML SUBCUT SCH ×4 (10:19→22:01)
[2016-07-26] MEDS: MUPIROCIN 2% OINT 22GM TOP SCH (10:20)
[2016-07-26] MEDS: NICOTINE 21MG PATCH TD SCH (10:20)
[2016-07-26] MEDS: MICONAZOLE NITRATE 2% OINT 71GM TOP SCH ×2 (10:20→21:49)
[2016-07-26] MEDS: ZINC OXIDE 20% OINT 30GM TOP SCH ×2 (10:21→21:49)
[2016-07-26] MEDS: LINAGLIPTIN 5MG TABLET PO SCH (10:22)
[2016-07-26] MEDS: CHOLECALCIFEROL (D3) 1000 UNIT TABLET PO SCH (10:22)
[2016-07-26] MEDS: DIVALPROEX SODIUM 250MG DR TABLET PO SCH ×2 (10:22→21:42)
[2016-07-26] MEDS: LITHIUM CARBONATE 150 MG CAPSULE PO SCH ×2 (10:23→18:16)
[2016-07-26 12:00] VITALS: BP 105/78
[2016-07-26 12:27] LABS: PLATELET ESTIMATE NORMAL
[2016-07-26] MEDS: INSULIN DETEMIR UD 100 UNITS/ML SYR SUBCUT SCH (12:50)
[2016-07-26] MEDS: ARIPIPRAZOLE 15MG TABLET PO SCH ×2 (14:31→16:04)
[2016-07-26] MEDS: ACETAMINOPHEN 650MG/20.3ML UDC GT PRN ×2 (14:34→22:02)
[2016-07-26 16:00] VITALS: BP 115/67
[2016-07-26 20:00] VITALS: BP 108/72
[2016-07-27] VITALS: BP 107/73
[2016-07-27] MEDS: INSULIN DETEMIR UD 100 UNITS/ML SYR SUBCUT SCH ×3 (00:52→21:45)
[2016-07-27] MEDS: IPRATROPIUM/ALBUTEROL 0.5-3(2.5)MG/3ML NEB INH SCH ×3 (03:28→14:00)
[2016-07-27 04:00] VITALS: BP 108/60
[2016-07-27] MEDS: ACETAMINOPHEN 650MG/20.3ML UDC GT PRN ×2 (04:02→17:45)
[2016-07-27] MEDS: SODIUM CHLORIDE 0.9% INJ 3ML FLUSH IVF SCH ×3 (06:12→21:46)
[2016-07-27] MEDS: BLOOD SUGAR DIAGNOSTIC STRIP TEST SCH ×4 (06:47→20:58)
[2016-07-27 08:00] VITALS: BP 133/87
[2016-07-27] MEDS: MUPIROCIN 2% OINT 22GM TOP SCH (08:56)
[2016-07-27] MEDS: ZINC OXIDE 20% OINT 30GM TOP SCH ×2 (08:56→20:57)
[2016-07-27] MEDS: MICONAZOLE NITRATE 2% OINT 71GM TOP SCH ×2 (08:56→20:56)
[2016-07-27] MEDS: ARIPIPRAZOLE 15MG TABLET PO SCH (08:58)
[2016-07-27] MEDS: DIVALPROEX SODIUM 250MG DR TABLET PO SCH ×2 (08:58→20:55)
[2016-07-27] MEDS: NICOTINE 21MG PATCH TD SCH (08:58)
[2016-07-27] MEDS: CHOLECALCIFEROL (D3) 1000 UNIT TABLET PO SCH (08:58)
[2016-07-27] MEDS: LITHIUM CARBONATE 150 MG CAPSULE PO SCH ×2 (08:59→17:45)
[2016-07-27] MEDS: LINAGLIPTIN 5MG TABLET PO SCH (08:59)
[2016-07-27] MEDS: INSULIN LISPRO 100 UNITS/ML SUBCUT SCH ×3 (09:05→18:20)
[2016-07-27] MEDS: INSULIN LISPRO (LOW DOSE) 100 UNITS/ML SUBCUT SCH ×4 (09:10→21:45)
[2016-07-27] MEDS: CEFTRIAXONE 2 G in DEXTROSE 5% WATER 50 ML IV SCH (10:10)
[2016-07-27 12:00] VITALS: BP 117/82
[2016-07-27 16:00] VITALS: BP 127/69
[2016-07-27 20:03] VITALS: BP 105/71
[2016-07-28] VITALS: BP 110/77
[2016-07-28] MEDS: ACETAMINOPHEN 650MG/20.3ML UDC GT PRN ×2 (02:06→17:56)
[2016-07-28] MEDS: IPRATROPIUM/ALBUTEROL 0.5-3(2.5)MG/3ML NEB INH SCH ×4 (02:28→20:24)
[2016-07-28 04:00] VITALS: BP 110/81
[2016-07-28] MEDS: SODIUM CHLORIDE 0.9% INJ 3ML FLUSH IVF SCH ×3 (05:49→21:36)
[2016-07-28] MEDS: BLOOD SUGAR DIAGNOSTIC STRIP TEST SCH ×4 (06:27→20:41)
[2016-07-28] MEDS: INSULIN LISPRO 100 UNITS/ML SUBCUT SCH ×3 (06:44→17:37)
[2016-07-28] MEDS: INSULIN LISPRO (LOW DOSE) 100 UNITS/ML SUBCUT SCH ×4 (06:45→21:32)
[2016-07-28 07:42] VITALS: BP 113/81
[2016-07-28] MEDS: DIVALPROEX SODIUM 250MG DR TABLET PO SCH ×2 (09:13→20:41)
[2016-07-28] MEDS: CHOLECALCIFEROL (D3) 1000 UNIT TABLET PO SCH (09:13)
[2016-07-28] MEDS: CEFTRIAXONE 2 G in DEXTROSE 5% WATER 50 ML IV SCH (09:14)
[2016-07-28] MEDS: ARIPIPRAZOLE 15MG TABLET PO SCH (09:14)
[2016-07-28] MEDS: LINAGLIPTIN 5MG TABLET PO SCH (09:14)
[2016-07-28] MEDS: NICOTINE 21MG PATCH TD SCH (09:15)
[2016-07-28] MEDS: MICONAZOLE NITRATE 2% OINT 71GM TOP SCH ×2 (09:15→20:42)
[2016-07-28] MEDS ORDERED: HALOPERIDOL LACTATE 5MG/ML VIAL IM NR (09:15)
[2016-07-28] MEDS: MUPIROCIN 2% OINT 22GM TOP SCH (09:16)
[2016-07-28] MEDS: ZINC OXIDE 20% OINT 30GM TOP SCH ×2 (09:17→20:42)
[2016-07-28] MEDS: INSULIN DETEMIR UD 100 UNITS/ML SYR SUBCUT SCH ×2 (10:16→21:33)
[2016-07-28] MEDS: LITHIUM CARBONATE 150 MG CAPSULE PO SCH ×2 (10:36→17:49)
[2016-07-28 11:53] VITALS: BP 109/82
[2016-07-28 16:00] VITALS: BP 104/68
[2016-07-28 16:50] LABS: BASOPHILS % 0.4 % (0.0-2.0); HEMATOCRIT. 38.1 % (36.0-48.0); HEMOGLOBIN. 12.4 g/dL (12.0-16.0); LYMPHOCYTES % 24.9 % (20.0-50.0); MEAN CORPUSCULAR HEMOGLOBIN 27.4 pg (28.0-32.0); MEAN CORPUSCULAR HGB CONC 32.6 g/dL (31.0-37.0); MEAN PLATELET VOLUME 7.7 fl (7.4-10.4); MONOCYTES % 4.2 % (2.0-8.0); NEUTROPHILS % 69.5 % (40.0-76.0); PLATELET 397 x1000/uL (130-400); RED BLOOD CELL COUNT 4.53 mill/uL (4.2-5.4); RED CELL DISTRIBUTION WIDTH 14.6 % (11.6-14.6); WHITE BLOOD COUNT 13.1 x1000/uL (4.5-11.0)
[2016-07-28 17:17] LABS: ALANINE AMINOTRANSFERASE 33 IU/L (13-61); ALBUMIN 2.7 g/dL (3.4-5.0); ANION GAP 14; CALCIUM 9.1 mg/dL (8.5-10.1); CARBON DIOXIDE 24 mEq/L (21-32); CHLORIDE 105 mEq/L (98-107); INDEX HEMOLYSI 3 (1-3); INDEX ICTERIC 1 (1-4); INDEX LIPEMIC 1 (1-3); UREA NITROGEN BLOOD 12 mg/dL (7-21); eGFR > 60 mL/min (>60)
[2016-07-28 20:00] VITALS: BP 108/67
[2016-07-29] VITALS: BP 118/66
[2016-07-29] MEDS: IPRATROPIUM/ALBUTEROL 0.5-3(2.5)MG/3ML NEB INH SCH ×4 (03:01→20:08)
[2016-07-29] MEDS: SODIUM CHLORIDE 0.9% INJ 3ML FLUSH IVF SCH ×3 (06:00→21:33)
[2016-07-29] MEDS: BLOOD SUGAR DIAGNOSTIC STRIP TEST SCH ×4 (06:13→21:05)
[2016-07-29] MEDS: ACETAMINOPHEN 650MG/20.3ML UDC GT PRN ×3 (06:18→21:31)
[2016-07-29] MEDS: INSULIN LISPRO (LOW DOSE) 100 UNITS/ML SUBCUT SCH ×5 (06:52→21:10)
[2016-07-29 08:00] VITALS: BP 112/73
[2016-07-29] MEDS: CEFTRIAXONE 2 G in DEXTROSE 5% WATER 50 ML IV SCH (08:32)
[2016-07-29] MEDS: CHOLECALCIFEROL (D3) 1000 UNIT TABLET PO SCH (08:32)
[2016-07-29] MEDS: LITHIUM CARBONATE 150 MG CAPSULE PO SCH ×2 (08:32→18:20)
[2016-07-29] MEDS: LINAGLIPTIN 5MG TABLET PO SCH (08:32)
[2016-07-29] MEDS: DIVALPROEX SODIUM 250MG DR TABLET PO SCH ×2 (08:32→21:04)
[2016-07-29] MEDS: INSULIN LISPRO 100 UNITS/ML SUBCUT SCH ×3 (08:34→18:22)
[2016-07-29] MEDS: NICOTINE 21MG PATCH TD SCH (08:35)
[2016-07-29] MEDS: MICONAZOLE NITRATE 2% OINT 71GM TOP SCH ×2 (08:35→21:05)
[2016-07-29] MEDS: ZINC OXIDE 20% OINT 30GM TOP SCH ×2 (08:36→21:05)
[2016-07-29] MEDS: MUPIROCIN 2% OINT 22GM TOP SCH ×2 (08:36→21:05)
[2016-07-29 10:06] LABS: LITHIUM SERUM 0.16 mmol/L (0.60-1.20)
[2016-07-29 12:00] VITALS: BP 145/84
[2016-07-29] MEDS: INSULIN DETEMIR UD 100 UNITS/ML SYR SUBCUT SCH ×2 (12:44→21:33)
[2016-07-29] MEDS: ARIPIPRAZOLE 15MG TABLET PO SCH (12:45)
[2016-07-29 16:00] VITALS: BP 123/73
[2016-07-29] MEDS ORDERED: LIDOCAINE HCL 1% 20ML VIAL (Pyxis) INJ INFIL SCH (17:00)
[2016-07-29 20:00] VITALS: BP 125/82
[2016-07-30] VITALS: BP 113/69
[2016-07-30] MEDS: IPRATROPIUM/ALBUTEROL 0.5-3(2.5)MG/3ML NEB INH SCH ×3 (01:02→13:33)
[2016-07-30 04:00] VITALS: BP 105/65
[2016-07-30] MEDS: SODIUM CHLORIDE 0.9% INJ 3ML FLUSH IVF SCH (05:44)
[2016-07-30] MEDS: BLOOD SUGAR DIAGNOSTIC STRIP TEST SCH ×2 (06:12→12:17)
[2016-07-30 08:00] VITALS: BP 110/78
[2016-07-30] MEDS: NICOTINE 21MG PATCH TD SCH (08:14)
[2016-07-30] MEDS: INSULIN LISPRO 100 UNITS/ML SUBCUT SCH ×2 (08:16→12:29)
[2016-07-30] MEDS: INSULIN LISPRO (LOW DOSE) 100 UNITS/ML SUBCUT SCH ×2 (08:17→12:29)
[2016-07-30] MEDS: LITHIUM CARBONATE 150 MG CAPSULE PO SCH (08:17)
[2016-07-30] MEDS: CHOLECALCIFEROL (D3) 1000 UNIT TABLET PO SCH (08:18)
[2016-07-30] MEDS: ZINC OXIDE 20% OINT 30GM TOP SCH (08:18)
[2016-07-30] MEDS: MICONAZOLE NITRATE 2% OINT 71GM TOP SCH (08:18)
[2016-07-30] MEDS: DIVALPROEX SODIUM 250MG DR TABLET PO SCH (08:18)
[2016-07-30] MEDS: ARIPIPRAZOLE 15MG TABLET PO SCH (08:18)
[2016-07-30] MEDS: LINAGLIPTIN 5MG TABLET PO SCH (08:18)
[2016-07-30] MEDS ORDERED: CEPHALEXIN 500MG CAPSULE PO SCH (09:45)
[2016-07-30] MEDS: INSULIN DETEMIR UD 100 UNITS/ML SYR SUBCUT SCH (11:08)
[2016-07-30 11:50] VITALS: BP 121/79
[2016-07-30 15:00] VITALS: BP 120/91
== END 2016-07-30 15:45 | disposition left against medical advice (07) | DRG 720 ==
LOC: ER 19:25 → MICUSO 23:37 → 6WST 07-22 16:00 → 8WST 07-27 18:49
PROVIDERS: ADMIT Family Medicine; ATTEND Family Medicine
PROC: 05H933Z Insertion of Infusion Device into Right Brachial Vein, Percutaneous Approach (ICD-10-PCS; principal; 2016-07-20)
DX: A40.0 Sepsis due to streptococcus, group A (principal); R65.21 Severe sepsis with septic shock; G93.40 Encephalopathy, unspecified; E11.65 Type 2 diabetes mellitus with hyperglycemia; E44.1 Mild protein-calorie malnutrition; M62.82 Rhabdomyolysis; E87.1 Hypo-osmolality and hyponatremia; D63.8 Anemia in other chronic diseases classified elsewhere; E66.01 Morbid (severe) obesity due to excess calories; E83.39 Other disorders of phosphorus metabolism; E83.42 Hypomagnesemia; E87.6 Hypokalemia; F20.9 Schizophrenia, unspecified; K76.0 Fatty (change of) liver, not elsewhere classified; L03.115 Cellulitis of right lower limb; I51.7 Cardiomegaly; J98.11 Atelectasis; Z79.4 Long term (current) use of insulin; Z79.84 Long term (current) use of oral hypoglycemic drugs; Z91.19 Patient's noncompliance with other medical treatment and regimen; F14.10 Cocaine abuse, uncomplicated; F12.90 Cannabis use, unspecified, uncomplicated; E03.9 Hypothyroidism, unspecified; F17.200 Nicotine dependence, unspecified, uncomplicated; Z68.42 Body mass index [BMI] 45.0-49.9, adult
CPT/HCPCS: 36415; 36569; 36600; 51702; 70450; 71010; 72170; 73552; 73562; 73700; 76937; 80048; 80053; 80061; 80076; 80178; 80202; 80302; 80305; 80329; 81001; 82140; 82306; 82375; 82533; 82550; 82607; 82805; 82962; 83036; 83605; 83690; 83735; 83880; 83921; 84100; 84134; 84439; 84443; 84481; 84484; 84681; 84702; 84703; 85007; 85025; 85027; 85610; 86705; 86709; 86803; 87040; 87077; 87086; 87186; 87340; 93005; 93970; 94640; 94664; 96365; 96366; 96367; 96375; 97110; 97116; 97163; 99291; A6261; C1725; G0482; J0696; J1200; J1630; J1815; J1956; J2543; J3370; J3475; J3480; J3490; J7030; J7040; J7042; J7050; J7060; J7620